=== PATIENT | male | born 1970 | race Hispanic/Latino ===

== ENCOUNTER 2020-04-06 22:29 | Emergency (ER) | payer BC, SELFPAY ==
[2020-04-06] MEDS ORDERED: Sodium Chloride 0.9% 1,000 ML ONE (23:01)
[2020-04-06] MEDS ORDERED: Ketorolac Tromethamine 30 MG/ML VIAL ONE (23:01)
[2020-04-06 23:19] LABS: #Basophils 0.1 thou/uL (0.0-0.2); #Eosinphils 0.1 thou/uL (0.0-0.7); #Lymphocytes 2.5 thou/uL (1.20-3.40); #Monocytes 0.7 thou/uL (0.11-0.59); #Neutrophils 3.6 thou/uL (1.40-6.50); %Basophils 1.8 % (0.0-1.0); %Eosinophils 1.3 % (0.0-10.0); %Lymphocytes 35.4 % (21.0-51.0); %Monocytes 10.3 % (0.0-10.0); %Neutrophils 51.2 % (42.0-75.0); Hemoglobin 14.6 g/dL (14.0-18.0); Mean Corpuscular HGB CONC 33.9 g/dL (32.0-36.0); Mean Corpuscular Hemoglobin 31.8 pg (27.0-31.0); Mean Corpuscular Volume 93.9 fL (78.0-98.0); Mean Platelet Volume 8.1 fL (7.4-10.4); Platelet Count 205 thou/uL (130-400); RBC Distribution Width 11.7 % (11.5-14.5); White Blood Cell (WBC) Count 7.1 thou/uL (4.8-10.8)
[2020-04-06 23:40] LABS: Anion Gap 17 mmol/L (10-20); Carbon Dioxide 22 mmol/L (22-29); Chloride 104 mmol/L (98-107); Critical Call Chemistry 261460; Potassium 3.9 mmol/L (3.5-5.1); Sodium 139 mmol/L (136-145)
[2020-04-06 23:46] LABS: Albumin 4.1 g/dL (3.5-5.0); BUN (Urea Nitrogen) 18 mg/dL (8.4-25.7); Bilirubin, Total 0.3 mg/dL (0.2-1.2); Calc. Creatinine Clearance 0 mL/min (70-130); Calcium 8.4 mg/dL (7.8-10.44); Estimated GFR-MDRD Greater than 90; Globulin 2.4 g/dL (2.4-3.5); Glucose 134 mg/dL (70-105); Protein, Total 6.5 g/dL (6.0-8.3)
[2020-04-06 23:47] LABS: AST (SGOT) 37 U/L (5-34); Alkaline Phosphatase 68 U/L (40-110)
[2020-04-06 23:48] LABS: ALT (SGPT) 40 U/L (8-55); CK (CPK) 148 U/L (30-200)
[2020-04-07 00:04] LABS: Bilirubin Negative (Negative); Blood, Urine Large (Negative); Clarity Clear (Clear); Glucose, Urine (Dipstick) Negative (Negative); Leukocyte Negative (Negative); Nitrite Negative (Negative); Protein, Urine (Dipstick) Negative (Neg-Trace); Urobilinogen 0.2 mg/dL (Less than 2)
[2020-04-07 00:05] LABS: Bacteria/HPF None Seen HPF (None Seen); RBC/HPF Greater than 50 HPF (0-3); Squamous Epithelial None Seen HPF (0-3); WBC/HPF 0-3 HPF (0-3)
--- NOTE | 2020-04-07 07:41 | CT ---
PRELIMINARY REPORT/[facility]/EMERGENCY AFTER HOURS PROCEDURE: EXAM: CT Abdomen and Pelvis Without Intravenous Contrast CLINICAL HISTORY: "dark" urine with bilat flank pain. Pain MOST SEVERE on RIGHT. HX OF KIDNEY STONES; Surgical history of appendectomy. TECHNIQUE: Axial computed tomography images of the abdomen and pelvis without intravenous contrast. CONTRAST: None. COMPARISON: None provided. FINDINGS: LUNG BASES: No basilar airspace consolidation or pleural effusion. LIVER: The liver is enlarged hypoenhancing. GALLBLADDER AND BILE DUCTS: Unremarkable. No calcified stone. No ductal dilation. PANCREAS: Unremarkable. SPLEEN: Unremarkable. ADRENAL GLANDS: Unremarkable. KIDNEYS, URETERS, AND BLADDER: 9 mm cyst at the lower pole of the right kidney. 5 mm calculus in the lower pole of the right kidney. Punctate 2 mm calculus in the proximal right ureter. No bladder calculi. STOMACH AND BOWEL: No obstruction. No wall thickening. No CT evidence of colitis or acute diverticuli tis. APPENDIX: No CT evidence for appendicitis. PERITONEUM: No free fluid. No free air. LYMPH NODES: No lymphadenopathy. REPRODUCTIVE: Unremarkable as visualized. VASCULATURE: No aortic aneurysm. ABDOMINAL WALL AND SOFT TISSUES: Right-sided fat filled inguinal hernia. BONES: No fracture or suspicious osseous abnormality. Multilevel degenerative disc disease. IMPRESSION: Punctate nonobstructive calculus at the lower pole of the right kidney. Punctate nonobs tructive calculus in the proximal right ureter. Fat infiltration of the liver. Fat filled right-sided inguinal hernia. ELECTRONICALLY SIGNED BY: Michi Ga MD April 07, 2020 12:57:36 AM CDT FINAL REPORT EMERGENT AFTER HOURS NONCONTRAST CT ABDOMEN AND PELVIS: HISTORY: Bilateral flank pain and dark urine. Pain greater on right. COMPARISON: None. IMPRESSION: 1. Punctate nonobstructing calculus proximal right ureter with nonobstructing 4 mm calculus inferior pole right kidney. 2. No left renal or ureteral calculus is seen. 3. Hepatic steatosis. 4. Findings are in agreement with the preliminary report by [facility]. Transcribed Date/Time: 04/07/2020 7:56 AM
== END 2020-04-07 01:27 | disposition home or self-care (01) ==
LOC: NAV ERS 22:29
DX: N20.2 Calculus of kidney with calculus of ureter (principal)
CPT/HCPCS: 74176; 80053; 81003; 81015; 82550; 85025; 96374; J1885; J7050

== ENCOUNTER 2020-04-10 09:36 | Outpatient (CLI) | payer BC ==
--- NOTE | 2020-04-10 10:01 | RAD ---
Exam: 1 view abdomen HISTORY: Right renal calculus COMPARISON: none Correlation: Stone CT 04/07/2020 FINDINGS: Nonspecific bowel gas pattern. No suspicious densities in the pelvis. Punctate density proj ects over the lower pole the right kidney measuring 0.5 cm. Right lower pole calculus corresponds to recent CT. Punctate density along the course of the proximal right ureter noted on recent CT is di fficult to appreciate. IMPRESSION: Radiographic evidence right lower pole calculus. Right ureteral calculus is difficult to appreciate radiographically..
== END 2020-04-10 09:37 | disposition home or self-care (01) ==
LOC: NAV RAD 09:36
DX: N20.2 Calculus of kidney with calculus of ureter (principal)
CPT/HCPCS: 74018

== ENCOUNTER 2020-09-10 08:55 | Emergency (ER) | payer BC ==
[2020-09-10] MEDS ORDERED: Sodium Chloride 0.9% 1,000 ML ONE (09:18)
[2020-09-10] MEDS ORDERED: Ketorolac Tromethamine 30 MG/ML VIAL ONE (09:18)
[2020-09-10 09:39] LABS: #Basophils 0.1 thou/uL (0.0-0.2); #Eosinphils 0.1 thou/uL (0.0-0.7); #Lymphocytes 1.5 thou/uL (1.20-3.40); #Monocytes 0.6 thou/uL (0.11-0.59); #Neutrophils 4.6 thou/uL (1.40-6.50); %Basophils 1.2 % (0.0-1.0); %Eosinophils 1.1 % (0.0-10.0); %Lymphocytes 22.1 % (21.0-51.0); %Monocytes 8.3 % (0.0-10.0); %Neutrophils 67.4 % (42.0-75.0); Hemoglobin 15.6 g/dL (14.0-18.0); Mean Corpuscular HGB CONC 33.8 g/dL (32.0-36.0); Mean Corpuscular Hemoglobin 31.8 pg (27.0-31.0); Mean Corpuscular Volume 94.1 fL (78.0-98.0); Mean Platelet Volume 7.2 fL (7.4-10.4); Platelet Count 221 thou/uL (130-400); RBC Distribution Width 11.6 % (11.5-14.5); Red Blood Cell (RBC) Count 4.89 mill/uL (4.70-6.10); White Blood Cell (WBC) Count 6.8 thou/uL (4.8-10.8)
[2020-09-10 09:44] LABS: Bilirubin Negative (Negative); Blood, Urine Large (Negative); Clarity Clear (Clear); Glucose, Urine (Dipstick) Negative (Negative); Ketone, Urine Negative (Negative); Leukocyte Negative (Negative); Nitrite Negative (Negative); Protein, Urine (Dipstick) 30 mg/dL (Neg-Trace); Specific Gravity, Urine 1.015 (1.005-1.030); Urobilinogen 0.2 mg/dL (Less than 2); pH, Urine 7.5 (5.0-9.0)
[2020-09-10 09:45] LABS: Bacteria/HPF None Seen HPF (None Seen); RBC/HPF 21-50 HPF (0-3); WBC/HPF 0-3 HPF (0-3)
[2020-09-10 09:46] LABS: Mucous/LPF Rare LPF (<2+); Squamous Epithelial None Seen HPF (0-3)
--- NOTE | 2020-09-10 09:56 | CT ---
CT abdomen and pelvis noncontrast HISTORY: Right flank pain. COMPARISON: 04/07/2020. FINDINGS: Now visible at the left lateral lung base is a 0.9 cm noncalcified smoothly marginated subp leural soft tissue density nodule. This level of the lung bases was not included on the prior exam. There is mild distention of the right renal collecting system and ureter to the level of the 0.5 cm d istal right ureteral calculus at the S2 level. The ureter beyond this point is decompressed. A 0.2 cm calculus is present within a calyx at the inferior pole of the right kidney. No stones or obstruct ion on the left. Urinary bladder is unremarkable. Liver remains diffusely hypodense. Fat protrudes into a right inguinal hernia that does not contain b owel. Small hiatal hernia is noted. Lack of contrast limits evaluation of the soft tissues. No evidence of bowel obstruction or inflammat ion. IMPRESSION : Partial obstruction at a 5 mm distal right ureteral calculus. Additional tiny nonobstructing right renal calculus. Noncalcified 9 mm left lateral lung base nodule. Please consider short-term follow-up dedicated CT ch est with IV contrast for complete evaluation of the lungs and mediastinum. Other incidental-type findings as detailed above.
[2020-09-10 10:03] LABS: ALT (SGPT) 28 U/L (8-55); AST (SGOT) 20 U/L (5-34); Albumin 4.2 g/dL (3.5-5.0); Alkaline Phosphatase 64 U/L (40-110); Anion Gap 13 mmol/L (10-20); BUN (Urea Nitrogen) 14 mg/dL (8.4-25.7); Bilirubin, Total 0.4 mg/dL (0.2-1.2); Calc. Creatinine Clearance 0 mL/min (70-130); Calcium 9.3 mg/dL (7.8-10.44); Carbon Dioxide 25 mmol/L (22-29); Chloride 103 mmol/L (98-107); Estimated GFR-MDRD Greater than 90; Globulin 2.9 g/dL (2.4-3.5); Glucose 107 mg/dL (70-105); Protein, Total 7.1 g/dL (6.0-8.3); Sodium 137 mmol/L (136-145)
[2020-09-10] MEDS ORDERED: Ondansetron PF 4 MG/2 ML Vial ONE (10:09)
== END 2020-09-10 10:20 | disposition home or self-care (01) ==
LOC: NAV ERS 08:55
DX: N13.2 Hydronephrosis with renal and ureteral calculous obstruction (principal)
CPT/HCPCS: 74176; 80053; 81003; 81015; 85025; 96374; 96375; J1885; J2405; J7050

== ENCOUNTER 2021-04-16 09:21 | Outpatient (CLI) | payer BC | END 2021-04-16 09:22 | disposition home or self-care (01) | LOC: NAV RAD 09:21 | DX: N20.0 Calculus of kidney (principal) | CPT/HCPCS: 74018 ==

== ENCOUNTER 2022-02-10 14:25 | Outpatient (CLI) | payer BC | END 2022-02-10 14:26 | disposition home or self-care (01) | LOC: NAV RAD 14:25 | PROVIDERS: ATTEND Urology | DX: N20.0 Calculus of kidney (principal) | CPT/HCPCS: 74018 ==